=== PATIENT | female | born 1985 | race African-American/Black ===

== ENCOUNTER 2017-01-09 00:04 | Emergency (ER) | payer MEDICAID, OTHER ==
[~2017-01-09] VITALS: Ht 157.5 cm; Wt 69.0 kg
[2017-01-09] MEDS ORDERED: LORAZEPAM 1MG TABLET PO ONE (01:00)
[2017-01-09] MEDS ORDERED: KETOROLAC 60MG/2ML VIAL IM ONE (01:00)
[2017-01-09] MEDS ORDERED: KETOROLAC 30MG/ML VIAL IV ONE (01:15)
[2017-01-09] MEDS ORDERED: ONDANSETRON HCL 4MG/2ML VIAL IM ONE (02:45)
[2017-01-09] MEDS ORDERED: MORPHINE SULFATE 4 MG/ML CPJ (NOT FOR IM USE) IV ONE ×4 (02:45→07:30)
[2017-01-09] MEDS ORDERED: KETAMINE HCL 50 MG/ML 10ML IV ONE (03:30)
[2017-01-09] MEDS ORDERED: PROPOFOL 200MG/20ML VIAL IV ONE (03:30)
[2017-01-09] MEDS ORDERED: ONDANSETRON HCL 4MG/2ML VIAL IV ONE (04:30)
[2017-01-09 07:41] VITALS: BP 154/98
== END 2017-01-09 07:42 | disposition short-term general hospital (02) ==
LOC: ER 00:07
DX: S42.251A Displaced fracture of greater tuberosity of right humerus, initial encounter for closed fracture (principal); V43.52XA Car driver injured in collision with other type car in traffic accident, initial encounter; W22.11XA Striking against or struck by driver side automobile airbag, initial encounter; Y93.89 Activity, other specified; Y92.414 Local residential or business street as the place of occurrence of the external cause; R53.1 Weakness; R03.0 Elevated blood-pressure reading, without diagnosis of hypertension; J45.909 Unspecified asthma, uncomplicated; F17.210 Nicotine dependence, cigarettes, uncomplicated; F12.90 Cannabis use, unspecified, uncomplicated
CPT/HCPCS: 23650; 73030; 73200; 81025; 96372; 96374; 96375; 96376; 99152; 99285; J1885; J2270; J2405; J3490; Z7610; 73020; J2704; L3670